=== PATIENT | male | born 1995 | race Caucasian/White ===

== ENCOUNTER 2018-12-27 12:43 | Outpatient (CLI) | payer OTHER ==
[2018-12-27] MEDS ORDERED: GADOBUTROL 10 MMOL/10 ML VIAL ONE (12:56)
[2018-12-27] MEDS ORDERED: GADOBUTROL 10 MMOL/10 ML VIAL IVP ONE (13:19)
--- NOTE | 2018-12-28 11:25 | MRI Report ---
Reason: RADICULOPATHY,LUMBAR REGION Procedure Date: 12/27/2018 Accession Number: [id number] / [id number] Procedure: MRI - Lumbar Spine W/WO CPT Code: FULL RESULT: EXAM: MRI LUMBAR SPINE WITHOUT AND WITH CONTRAST EXAM DATE: 12/27/2018 01:39 PM. CLINICAL HISTORY: Radiculopathy, lumbar region. COMPARISONS: None. TECHNIQUE: Multiplanar, multisequence T1-weighted and fluid-sensitive sequences of the lumbar spine from T12 to S1 before and after administration of intravenous contrast. Other: None. IV contrast: 10 mL Gadavist given IV, no reaction. FINDINGS: Neurologic Structures: The conus terminates at T12-L1. The conus medullaris and cauda equina are unremarkable. Alignment: No scoliosis or spondylolisthesis. Bone Marrow: Five [id number] lumbar vertebral bodies are assumed. No gross fractures or bone lesions. No bone marrow replacement or abnormal enhancement. Disk Levels/Facets: T12-L1: Unremarkable. L1-L2: Unremarkable. L2-L3: Unremarkable. L3-L4: Normal disk. Prominent facets. No stenosis. L4-L5: Disk dehydration, annular tear, small focal central disk extrusion on series 601 image 13 which does touch the ventral aspect of the thecal sac without deformity of the thecal sac or its contents. Prominent facets. No central or foraminal stenosis. L5-S1: Previous undersurface left hemilaminotomy. Annular tear, recurrent left paracentral disk extrusion is present with mass effect and flattening of the left S1 root and the subarticular zone. Series 6 and 106, series 901 image 7. This measures 1.0 x 0.8 cm transversely and extends for a cephalocaudal distance of 1.0 cm. Spinal Canal: No enhancing masses within the spinal canal. No epidural abscess. Musculature: Moderate fatty atrophy of the multifidus muscle is seen. Other: The visualized retroperitoneum is unremarkable. IMPRESSION: 1. Conus terminates at T12-L1, which is normal. No areas of abnormal enhancement or abnormal signal. Bones show no fracture. Moderate fatty atrophy of the multifidus muscle is seen. 2. L2-L3 is normal. 3. L3-L4 also unremarkable. 4. L4-L5 shows some disk dehydration and a small focal central disk extrusion which does not exert significant mass effect on the thecal sac. No central or foraminal stenosis. 5. L5-S1 shows previous undersurface left hemilaminotomy. There is an annular tear and recurrent left paracentral disk extrusion with mass effect and flattening of the left S1 root in the subarticular zone. This extrusion is 1.0 x 0.8 cm transversely and extends for a cephalocaudal distance of 1.0 cm. Comment: The following findings are so common in adults without low back pain that while we report their presence, they must be interpreted with caution and in the context of the clinical situation. (Reference Rose Maryk et al, Spine 2001) Prevalence of findings in patients without low back pain: Disk degeneration (any evidence): 92% Disk desiccation/T2 signal loss: 83% Disk height loss: 56% Disk bulge: 64% Disk protrusion: 32% Annular tear/high intensity zone: 38% RADIA
== END 2018-12-27 12:44 | disposition home or self-care (01) ==
LOC: DI 12:43
PROVIDERS: ATTEND Student in an Organized Health Care Education/Training Program
DX: M51.16 Intervertebral disc disorders with radiculopathy, lumbar region (principal)
CPT/HCPCS: 72158; A9585